=== PATIENT | female | born 1990 | race Hispanic/Latino ===

== ENCOUNTER 2020-08-30 14:30 | Outpatient (RCR) | payer OTHER, SELFPAY | END 2020-09-04 23:59 | LOC: DC 14:30 | PROVIDERS: Visit Provider Obstetrics & Gynecology | DX: O24.410 Gestational diabetes mellitus in pregnancy, diet controlled (principal) | CPT/HCPCS: 97802 ==

== ENCOUNTER 2020-09-18 14:30 | Outpatient (RCR) | payer OTHER, SELFPAY | END 2020-09-18 23:59 | disposition home or self-care (01) | LOC: DC 14:30 | PROVIDERS: Visit Provider Obstetrics & Gynecology | DX: O24.410 Gestational diabetes mellitus in pregnancy, diet controlled (principal); Z3A.00 Weeks of gestation of pregnancy not specified ==

== ENCOUNTER 2020-10-26 05:00 | Inpatient (IN) | payer OTHER, SELFPAY ==
--- NOTE | 2020-10-23 15:37 | HP.PCM_ITS ---
History and Physical Date of Admission: 10/26/20 HPI: The patient is a 30 year old female presenting for pre-operative visit. She is scheduled for , for breech on 10/26. Procedure discussed along with risks, benefits and complications. Other alternatives discussed for management. Consent form signed? Yes. ? ? PAST MEDICAL HISTORY PAST MEDICAL HISTORY Diagnosis Date ? Depression and anxiety ? ? Gestational diabetes mellitus, class A1 08/21/2020 ? IBS (irritable bowel syndrome) ? ? ? PAST SURGICAL HISTORY PAST SURGICAL HISTORY Procedure Laterality Date ? CHOLECYSTECTOMY HX ? CURRENT MEDICATIONS Current Outpatient Medications Medication Sig Dispense Refill ? insulin NPH human (HUMULIN N NPH INSULIN KWIKPEN) 100 unit/mL (3 mL) injection pen Inject 40 Units subcutaneously daily at bedtime. 1 Pen 1 ? triamcinolone acetonide (KENALOG) 0.1 % cream Apply to affected area twice daily. 45 g 0 ? Insulin [place], Disposable, (BD ULTRA-FINE KAREN PEN NEEDLE) 32 gauge x 5/32 30 Each once daily. 30 Each 1 ? blood sugar diagnostic test strip 1 Strip four times daily. Use as instructed 120 Strip 9 ? Lancets lancets 1 Each four times daily. Use as instructed 120 Each 9 ? MELATONIN ORAL Take by mouth. ? ? ? omeprazole magnesium (PRILOSEC ORAL) Take by mouth. ? ? ? diphenhydrAMINE HCl (UNISOM, DIPHENHYDRAMINE,) 50 mg/30 mL liqd Take by mouth. ? Esorrwmj-Hj-Eiz-Fe-FA ( VITAMIN) tab Take 1 tablet by mouth. ? ? ? cholecalciferol, vitamin D3, (VITAMIN D3 ORAL) Take by mouth. ? ? ? No current facility-administered medications for this visit. ? ? ALLERGIES: Morphine ? PERSONAL HISTORY: SOCIAL HISTORY Social History ? Tobacco Use ? Smoking status: Never Smoker ? Smokeless tobacco: Never Used Vaping Use ? Vaping Use: Never used Substance Use Topics ? Alcohol use: No ? Drug use: No ? FAMILY HISTORY: FAMILY HISTORY FAMILY HISTORY Problem Relation Age of Onset ? Depression Mother ? ? other (Diverticulitis) Mother ? ? other (stomach ulcers) Mother ? ? other (stomach ulcers) Sister ? ? No Known Problems Brother ? ? Heart Maternal Grandfather ? ? No Known Problems Sister ? ? No Known Problems Brother ? ? ? REVIEW OF SYMPTOMS: GENERAL: denies fevers or chills ENDOCRINOLOGY: has not been on steroids Cardiology : denies palpitations or chest pain Respiratory: denies SOB or cough Hematology: denies history of prolonged bleeding or easy bruising or VTE Allergy: Denies history of personal or family history of allergy to anesthesia ? PHYSICAL EXAMINATION: ? VITALS: Last menstrual period 01/27/2020. ? GENERAL: The patient is well nourished, well hydrated in no acute distress. , The patient is oriented to time, place, and person. NECK: Supple. No lynphadenopathy, normal thyroid, no thyromegaly. LUNGS: Clear to auscultation bilaterally. no wheezes, rhonchi or rales HEART: Regular rate and rhythm, Normal heart sounds and No murmurs or gallops ? IMPRESSION: Estimated Date of Delivery: 11/02/20 for primary c/s for breech, GDM A2 ? PLAN: The risks/benefits/alternatives and personal involved for the planned delivery were reviewed with the patient. Her questions were answered to her satisfaction and she desires to proceed. Consent was signed. I reviewed with her postop instructions and expectations. ? ? I have reviewed and updated past medical and surgical history, medications and allergies.This H&P was completed in my office on 10/23/2020 Assessment & Plan Assessment/Plan (1) White classification A2 gestational diabetes mellitus: (2) 39 weeks gestation of : (3) Breech presentation with problem: (4) Maternal obesity syndrome in third trimester: (5) Adult BMI 40.0-44.9 kg/sq m: (6) Supervision of other high risk pregnancies, third trimester:
[2020-10-26] VITALS (16 sets, daily range): BP systolic 99–132; BP diastolic 52–79; PULSE 57–88; RESP 16; TEMP 36.1–36.4; O2SAT 94–97; BMI 43.7
[2020-10-26] MEDS: Lactated Ringers 1,000 ML 999 ML IV (05:15)
[2020-10-26 05:32] LABS: Absolute Neutrophil Count 5.2 X10^3/uL (2.0-7.7); Basophil# 0.03 X10^3/uL; Basophil% 0.4 % (0-1); Eosinophil# 0.09 X10^3/uL; Eosinophils% 1.1 % (0-5); Hematocrit 37.9 % (37-47); Hemoglobin 12.7 g/dL (12.0-15.0); Lymphocyte % 25.7 % (19-41); Mean Corp Hgb Conc 33.5 g/dL (32-36); Mean Corpuscular Hgb 31.7 pg (27.0-32.0); Mean Corpuscular Volume 94.5 fL (81-99); Mean Platelet Vol. 10.4 fl (6.2-12.0); Monocyte# 0.64 X10^3/uL; Monocyte% 7.8 % (0-10); NRBC Flagged by Analyzer 0 % (0-5); Neutrophil # 5.23 X10^3/uL (2.7-7.7); Platelet Count 138 K/mm3 (150-450); RBC Distribution Width CV 14.3 % (11.6-14.6); RBC Distribution Width SD 49.5 fl (35.1-43.9); Red Blood Count 4.01 M/mm3 (4.2-5.4); White Blood Count 8.2 K/mm3 (4.4-11.0)
[2020-10-26] MEDS: Acetaminophen 500 MG Tablet 1000 MG PO ×4 (05:43→23:51)
[2020-10-26 05:56] LABS: Bedside Glucose 80 mg/dL (70-110)
[2020-10-26] MEDS: Lactated Ringers 1,000 ML 150 ML IV (06:16)
[2020-10-26] MEDS: Sodium Citrate/Citric Acid 30 ML UDC PO (07:05)
[2020-10-26] MEDS: Cefazolin 2 GM in 0.9% Normal Saline 100 ML IV (07:34)
[2020-10-26] MEDS: Oxytocin 30 units/NS 500 ml 30 UNITS/500 ML IV.SOLN 167 UNITS IV (08:30)
[2020-10-26] MEDS: Ketorolac 30 MG/ML Syringe IV ×3 (08:50→20:44)
[2020-10-26] MEDS: HYDROmorphone 1 MG/ML Syringe IV ×2 (09:13→11:52)
[2020-10-26 09:56] LABS: Bedside Glucose 95 mg/dL (70-110)
[2020-10-26] MEDS: Senna/Docusate Sodium 1 Tablet PO (10:45)
[2020-10-26] MEDS: Ondansetron 4 MG/2 ML Vial IV (11:00)
--- NOTE | 2020-10-26 11:10 | OP.PCM_ITS ---
Assessment & Plan (1) Breech presentation with problem: (2) Maternal obesity syndrome in third trimester: (3) Adult BMI 40.0-44.9 kg/sq m: (4) Supervision of other high risk pregnancies, third trimester: (5) delivery affecting : (6) Liveborn infant as result of : Maternal Data Information Final TUYET: 11/02/20 Final TUYET Source: US <20 weeks Gestational age: 39 0/7 Details Operative Information Date of Procedure: 10/26/20 Pre-Operative Diagnosis: breech Post-Operative Diagnosis: same Classification: Scheduled Procedure Type: low transverse commercial collections driver #1: Ashley Bruno Type of Anesthesia: Spinal Anesthesiologist: Sachin Corley Drain: Montes to straight drain Estimated Blood Loss: 800 Fluids Replaced: 1000 Procedure Start Time: 07:42 Procedure Stop Time: 08:05 Time of Delivery: 07:45 Findings Description of Procedure: The patient was taken to the operating room. She was prepped and draped in the dorsal supine position with a leftward tilt. A Pfannenstiel skin incision was made approximately 2 cm above the symphysis pubis and carried through to underlying layer fascia with the scalpel. The fascia was incised incised in the midline and extended laterally with blunt and sharp dissection. The rectus muscles were in the midline and the peritoneum was entered bluntly. The peritoneal incision was stretched and the b ladder blade was placed. The uterine incision was made in a low transverse fashion with the scalpel and extended superiorly and inferiorly with blunt dissection. The amniotic membranes were ruptured bluntly and clear amniotic fluid returned. The 's buttocks were brought to the incision. The baby was turned back up. The legs were swept out individually. Then the arms were swept out individually. The head was then delivered with fundal pressure in a flexed position without difficulty. The mouth and nares were bulb suctioned. The cord was clamped and cut as the infant was stimulated. Cord clamping was delayed. The infant was handed off to the waiting nursing staff. The placenta was delivered with fundal massage and gentle traction in the standard fashion. The uterus was exteriorized and cleared of all clots and debris. The cervix was dilated with a ring forcep. The uterine incision was closed with #1 Vicryl in a running locked fashion. A second layer of the same suture was used in an imbricating fashion. The incision was examined and was found to be hemostatic. The uterus was placed back into the peritoneal cavity and hemostasis was again confirmed. The rectus muscles were examined and any bleeding was Bovie cauterized. The parietal peritoneum and rectus muscles were closed en bloc with an 0 Vicryl running suture. The surgical teams outer gloves were then changed. The rectus fascia was examined and any bleeding was Bovie cauterized and the rectus fascia was closed with 0 PDS looped suture in a running standard fashion. The subcutaneous tissue was examining and any bleeding was Bovie cauterized. The subcutaneous tissue was reapproximated with 3-0 Vicryl suture. The skin was closed in a subcuticular fashion by the ECOLOGICAL TECHNICAL OFFICER with me present in the labor and delivery suite. I performed the remainder of the procedure with assistance. All sponge, lap, and needle counts were correct. The patient was taken to her room for recovery in a stable condition. Presentation: Positive for Rohan Breech Amniotic Membrane Rupture Type: Artificial Amniotic Fluid Description: Clear Placental Delivery Description: Spontaneous Placenta Disposition: [facility] Specimen(s) Sent to Pathology: none Cord Vessel Description: 3 Vessels Cord Entanglement: None A Gender: Male (1 minute): 9 (5 minute): 9 Delayed Cord Clamping: Yes Complications Complications: none
[2020-10-26] MEDS: Lactated Ringers 1,000 ML 100 ML IV (11:41)
[2020-10-26] MEDS: proCHLORPERazine 10 MG/2 ML Vial IV (12:21)
[2020-10-26] MEDS: 0.9% Saline Lock 10 ML Syringe IV ×2 (19:00→20:44)
[2020-10-26] MEDS: Enoxaparin 40 MG/0.4 ML Syringe SC (20:44)
[2020-10-27 00:40] VITALS: BP 120/73; PULSE 71; RESP 18; TEMP 36.4
[2020-10-27] MEDS: Ketorolac 30 MG/ML Syringe IV (03:14)
[2020-10-27] MEDS: 0.9% Saline Lock 10 ML Syringe IV (03:14)
[2020-10-27 03:22] VITALS: BP 108/59; PULSE 62; RESP 16; TEMP 36.6
[2020-10-27] MEDS: Acetaminophen 500 MG Tablet 1000 MG PO ×4 (06:01→23:53)
[2020-10-27 06:51] LABS: Hematocrit 33.5 % (37-47); Mean Corp Hgb Conc 32.8 g/dL (32-36); Mean Corpuscular Hgb 31.1 pg (27.0-32.0); Mean Corpuscular Volume 94.6 fL (81-99); Mean Platelet Vol. 10.7 fl (6.2-12.0); Platelet Count 128 K/mm3 (150-450); RBC Distribution Width CV 14.4 % (11.6-14.6); RBC Distribution Width SD 49.2 fl (35.1-43.9); Red Blood Count 3.54 M/mm3 (4.2-5.4); White Blood Count 9.8 K/mm3 (4.4-11.0)
[2020-10-27 07:35] LABS: Bedside Glucose 73 mg/dL (70-110)
[2020-10-27 08:15] VITALS: BP 114/62; PULSE 67; RESP 16; TEMP 36.4; O2SAT 96
--- NOTE | 2020-10-27 08:54 | PN.OBGYN_ITS ---
Subjective Subjective .Doing well per patient and nursing staff. Ambulating and taking PO without difficulty. Voiding and passing flatus. Pain controlled. , services for assistance. Denies headache, visual changes, chest pain, shortness of breath, leg pain or increased bleeding. Lochia normal. Planning DC home tomorrow. Objective Data Objective Data Vital Signs: Vital Signs Temp Pulse Resp BP Pulse Ox 97.5 F L 67 16 114/62 96 10/27/20 08:15 10/27/20 08:15 10/27/20 08:15 10/27/20 08:15 10/27/20 08:15 Oxygen Delivery Method Room Air Weight: 247 lb Body Mass Index (BMI) 43.7 Intake & Output: Intake and Output for Last 24 Hours 10/25/20 10/26/20 10/27/20 23:59 23:59 23:59 Intake Total 4026 / 4026 Output Total 3000 / 3000 500 / 500 Balance 1026 / 1026 -500 / -500 Lab / Micro Data Result Diagrams: 10/27/20 06:45 Labs: Laboratory Results - last 24 hr 10/26/20 09:47: POC Glucose 95 10/27/20 06:04: POC Glucose 73 10/27/20 06:45: WBC 9.8, RBC 3.54 L, Hgb 11.0 L, Hct 33.5 L, MCV 94.6, MCH 31.1, MCHC 32.8, RDW Std Deviation 49.2 H, RDW Coeff of [place] 14.4, Plt Count 128 L, MPV 10.7 ROS Constitutional Constitutional: Reports systems reviewed and no addt'l complaints, except as documented; Denies headache(s) Eyes Eyes: Denies acute decrease in peripheral vision, blurry vision or change in vision ENT HEENT: Reports systems reviewed and no addt'l complaints, except as documented Cardiovascular Cardiovascular: Denies chest pain or dizziness Respiratory/Chest Respiratory/Chest: Denies cough, dyspnea, dyspnea on exertion, shortness of mark ath at rest or shortness of breath with exertion Gastrointestinal Gastrointestinal: Denies abdominal pain, diarrhea, nausea or vomiting Genitourinary Genitourinary: Denies abdominal discomfort Musculoskeletal Musculoskeletal: Denies limited range of motion Integumentary Integumentary: Reports systems reviewed and no addt'l complaints, except as documented Neurologic Neurologic: Reports systems reviewed and no addt'l complaints, except as documented Psychiatric Psychiatric: Reports systems reviewed and no addt'l complaints, except as documented Endocrine Endocrinology: Reports systems reviewed and no addt'l complaints, except as documented Hematologic/Lymphatic Hematologic/Lymphatic: Reports systems reviewed and no addt'l complaints, except as documented Allergic/Immunologic Allergic/Immunologic: Reports systems reviewed and no addt'l complaints, except as documented Physical Exam Const alert and oriented x3 General Appearance: cooperative Orientation / Consciousness: awake, oriented to person, oriented to place and oriented to time Exam Limitations: no limitations HEENT normocephalic Head and Scalp: normal to inspection, normocephalic and atraumatic Face and Sinus: normal facial exam Eyes General Eye: normal appearance of both eyes Neck full ROM Chest Chest: symmetrical chest wall rise Resp normal respiratory effort and normal air movement Auscultation: clear to auscultation bilaterally Cardio regular rate, regular rhythm, S1 normal heart sound, S2 normal heart sound, no murmurs, no rub, no gallops and no clicks GI normal to inspection, nondistended, normoactive bowel sounds and non-tender GI Narrative: Fundus firm 3 below U. Dressing dry and intact. appearance of the vagina normal Bladder / Kidney Exam: no CVA tenderness Back/Spine normal ROM Extremity normal to inspection and full ROM Skin no rashes or lesions noted Neuro oriented x3, CN's II-XII intact bilaterally and moves all extremities Sensorium / Orientation: awake, alert and oriented to person Motor Exam: clonus absent Deep Tendon Reflexes: Rt Patellar (L4): 2+ and Lt Patellar (L4): 2+ Assessment & Plan (1) Liveborn as result of : (2) delivery affecting : (3) 39 weeks gestation of : (4) Adult BMI 40.0-44.9 kg/sq m: (5) White classification A2 gestational diabetes mellitus: PLAN: 1. Routine and breast-feeding instructions given. 2. Vital signs and labs stable. 3. Pain controlled. Montes out 4. Planning DC home tomorrow.
[2020-10-27] MEDS: Enoxaparin 40 MG/0.4 ML Syringe SC ×2 (10:15→21:42)
[2020-10-27] MEDS: Senna/Docusate Sodium 1 Tablet PO (10:16)
--- NOTE | 2020-10-27 10:51 | CM.ED ---
SW Note Assessment Referral Source: MD Reason for Referral: History of anxiety, depression and panic attacks SW interviewed patient and her in the room together. Patient voiced that she was comfortable speaking in front of the /fob. Mother delivered on 10/26/20 via c section. Mom: Vee Velasquez G2 P Now 1 PNC: [facility] Control: Abstinence and condoms. SW educated patient on abstinence as a method of control is sometime uneffective due to life situations. Patient said that they are only planning to have one child Baby: Titi ANDRADE 10/26/20 Apgars 9/9 Weight 8 lbs 2 ounces per parents [employer] Nurse: Dr. Alaniz's office ([facility]) Breast feeding: Mother reports that breast feeding is going good No other children Housing: Patient and FOB reside in an apartment in [place] with the and their dogs. Patient said that they are buying a house soon. Transportation: Patient and the FOB both have vehicles and are legally able to drive Supplies: Patient said that she has clothes till 2T, stroller, bassinet, diapers (various sizes) and bassinet with mattress that was included in the bassinet. Patient said that she plans to get a crib when they move to their new home Supports: Patient said that her support is her , Dean. Patient was asked if she had any other supports and patient said not really.. I keep to myself. Education Level: Patient graduated from high school. No learning issues or delays. No college or vocational school for patient. Employment: Patient is not employed outside of the home Agency Involvement: No JFS, WIC, HMG, Counseling, CSB or legal involvement, FOB: Dean Velasquez Time Together 8 1/2 years Father is involved with the Employment: [employer] in [place]. FOB will get 2 weeks off and also has a bank of [place] time (400 + hours) to assist with appointments, if needed. FOB MH/AOD and DV issues or history: FOB reports that he has anxiety. FOB said that he sees a psychiatrist from [facility] for [facility] and takes psychiatric medication. FOB is currently on medication, Ativan and Paxil and feels that the medication works well. He indicated that he had to try different Meds prior to finding the combination that worked but this current combination works well. JOVANI MH History: JOVANI reports a history of anxiety, depression and panic disorder. JOVANI is currently not on medication. JOVANI said that she has been calm and has been learning to manage her symptoms by taking a nap or showering. JOVANI reports no psych hospitalization history. JOVANI reports no history of SI/HI and JOVANI reports on this date she is not experiencing any SI/HI. JOVANI said that she took Wellbutrin in the past and discontinued it because I didn't like how it made me feel. JOVANI has been off anti anxiety and Wellbutrin since [id number] and off trazodone since 2018. Patient denied any AOD use or history. SW educated patient and FOB on Shaken Baby Syndrome, PPD and safe sleeping. SW observed patient holding and smiling when talking about the . FOB also seem to be appropriately bonding with the . SW spoke to RN Kelly who voiced no concerns regarding the care that the parents were providing. SW provided patient with handout on PPD including 10 facts about depression and anxiety in and , Babies cry alot handout, I need my own space handout, Help Me Grow information and resource list for [facility]. SW also provided information on Post Support Warm Line and Depression During and After . SW updated RN and the Nursing Board indicating patient was seen and clear for discharge unless new concerns arise. Plan: Home Kailee HAY
[2020-10-27 14:09] VITALS: BP 110/67; RESP 16; TEMP 36.7
[2020-10-27 20:09] VITALS: BP 121/79; PULSE 74; RESP 18; TEMP 36.6
[2020-10-28 01:45] VITALS: BP 118/72; PULSE 63; RESP 16; TEMP 36.6
[2020-10-28] MEDS: Acetaminophen 500 MG Tablet 1000 MG PO (06:53)
[2020-10-28 08:00] VITALS: BP 112/67; PULSE 62; RESP 20; TEMP 36.6
--- NOTE | 2020-10-28 09:45 | PCM.PN.OB ---
Subjective Subjective Doing well per patient and nursing staff. Ambulating and taking PO without difficulty. Voiding and passing flatus. Pain controlled. , services for assistance. Denies headache, visual changes, chest pain, shortness of breath, leg pain or increased bleeding. Lochia normal. Planning DC home today Objective Data Objective Data Vital Signs: Vital Signs Temp Pulse Resp BP Pulse Ox 97.8 F 62 20 H 112/67 96 10/28/20 08:00 10/28/20 08:00 10/28/20 08:00 10/28/20 08:00 10/27/20 08:15 Oxygen Delivery Method Room Air Weight: 247 lb Body Mass Index (BMI) 43.7 Intake & Output: Intake and Output for Last 24 Hours 10/26/20 10/27/20 10/28/20 23:59 23:59 23:59 Intake Total 4026 / 4026 Output Total 3000 / 3000 500 / 500 Balance 1026 / 1026 -500 / -500 Lab / Micro Data Result Diagrams: 10/27/20 06:45 ROS Constitutional Constitutional: Reports systems reviewed and no addt'l complaints, except as documented; Denies headache(s) Eyes Eyes: Denies acute decrease in peripheral vision, blurry vision or change in vision ENT HEENT: Reports systems reviewed and no addt'l complaints, except as documented Cardiovascular Cardiovascular: Denies chest pain or dizziness Respiratory/Chest Respiratory/Chest: Denies cough, dyspnea, dyspnea on exertion, shortness of breath at rest or shortness of breath with exertion Gastrointestinal Gastrointestinal: Denies abdominal pain, diarrhea, nausea or vomiting Genitourinary Genitourinary: Denies abdominal discomfort Musculoskeletal Musculoskeletal: Denies limited range of motion Integumentary Integumentary: Reports systems reviewed and no addt'l complaints, except as documented Neurologic Neurologic: Reports systems reviewed and no addt'l complaints, except as documented Psychiatric Psychiatric: Reports systems reviewed and no addt'l complaints, except as documented Endocrine Endocrinology: Reports systems reviewed and no addt'l complaints, except as documented Hematologic/Lymphatic Hematologic/Lymphatic: Reports systems reviewed and no addt'l complaints, except as documented Allergic/Immunologic Allergic/Immunologic: Reports systems reviewed and no addt'l complaints, except as documented Physical Exam Const alert and oriented x3 General Appearance: cooperative Orientation / Consciousness: awake, oriented to person, oriented to place and oriented to time Exam Limitations: no limitations HEENT normocephalic Head and Scalp: normal to inspection, normocephalic and atraumatic Face and Sinus: normal facial exam Eyes General Eye: normal appearance of both eyes Neck full ROM Chest Chest: symmetrical chest wall rise Resp normal respiratory effort and normal air movement Auscultation: clear to auscultation bilaterally Cardio regular rate, regular rhythm, S1 normal heart sound, S2 normal heart sound, no murmurs, no rub, no gallops and no clicks GI normal to inspection, nondistended, normoactive bowel sounds and non-tender GI Narrative: Fundus firm 3 below U. Dressing dry and intact. appearance of the vagina normal Bladder / Kidney Exam: no CVA tenderness Back/Spine normal ROM Extremity normal to inspection and full ROM Skin no rashes or lesions noted Neuro oriented x3, CN's II-XII intact bilaterally and moves all extremities Sensorium / Orientation: awake, alert and oriented to person Motor Exam: clonus absent Deep Tendon Reflexes: Rt Patellar (L4): 2+ and Lt Patellar (L4): 2+ Assessment & Plan (1) Liveborn infant as result of : (2) delivery affecting : (3) White classification A2 gestational diabetes mellitus: PLAN: 1. Routine and breast-feeding instructions reviewed. Postoperative instructions. 2. Blood pressure stable. 3. Pain controlled, declines prescription for narcotic. Would like Tylenol and Ibuprofen. To call if needed. 4. Follow-up for 1 week incision check in 6 weeks for visit. 5. DC home today
[2020-10-28] MEDS: Enoxaparin 40 MG/0.4 ML Syringe SC (11:08)
--- NOTE | 2020-10-28 11:15 | PCM.DC.SUM ---
Providers Date of Admission: 10/26/20 Reason For Visit: C SECTION Diagnosis Discharge Diagnosis (1) Liveborn infant as result of : Status: Acute Code(s): Z37.0 - Single live (2) delivery affecting : Status: Acute Code(s): P03.4 - affected by delivery (3) White classification A2 gestational diabetes mellitus: Status: Acute Code(s): O24.419 - Gestational diabetes mellitus in , unspecified control Medications at Discharge Home Medications 1 tab PO DAILY 10/26/20 vit D3-folic zaaj-S1-J2-B12 1 tab PO DAILY 10/26/20 acetaminophen 1,000 mg PO Q6 #30 tab 10/28/20 ibuprofen 600 mg PO Q6H PRN #30 tab 10/28/20 sennosides-docusate sodium [Stool Softener-Stimulant Laxat] 1 tab-cap PO DAILY #30 tab 10/28/20 Weight / BMI Weight Weight: 247 lb Body Mass Index (BMI) 43.7 ABG / Lab / Microbiology Data Result Diagrams: 10/27/20 06:45 D/C Instructions Discharge Diet: No restrictions Discharge Activity: Return to Normal Activity, May Shower and May Take a Tub Bath May resume sexual activity in: 6 weeks Weight Bearing Status: Weight bearing as tolerated Lifting Restricted to (Lbs): 50 Call your doctor if your incision/area has: Sudden Increased Bleeding, Increased Pain/ Swelling, Increased Redness and Foul Smelling Discharge Call your doctor if you observe: Fever of 101 or Higher, Inability to urinate, Inability to have a bowel movement, Using more than 1 pad per hour, Shortness of breath, Dizziness, Fainting spells, Chest pain, Increased palpitations (irregular heartbeat), Calf discomfort and Uncontrolled pain Please Follow Up With: When: 2 weeks for virtual visit and 6 weeks for visit Meaningful Use Info Meaningful Use Diagnoses (Choose all that apply): None applicable Discharge Plan Admission Admit Date/Time: 10/26/20 05:00 Primary Reason for Your Visit: vaginal delivery Attending Provider: Aleida Tenorio Instructions Patient Instructions: Discharge Orders/Prescriptions Prescriptions: New sennosides-docusate sodium [Stool Softener-Stimulant Laxat] 8.6-50 mg Tablet 1 tab-cap PO DAILY Qty: 30 RF: 0 acetaminophen 500 mg Tablet 1,000 mg PO Q6 Qty: 30 RF: 0 ibuprofen 600 mg tablet 600 mg PO Q6H PRN (Reason: pain) Qty: 30 RF: 12 Continued vit D3-folic ufoy-P2-L2-B12 2,000-800-0.32 unit-mcg-mg Tablet 1 tab PO DAILY RF: 0 400 mcg Tablet,Chewable 1 tab PO DAILY RF: 0 Discontinued omeprazole [Prilosec] 10 mg Capsule,Delayed Release(Dr/Ec) 10 mg PO PRN PRN (Reason: ) RF: 0 insulin NPH isoph U-100 human 100 unit/mL Cartridge 20 unit SUBCUT X1 RF: 0 melatonin 1 mg Tablet 1 mg PO PRN PRN (Reason: Sleep) RF: 0 Unisom (diphenhydramine) 50 mg/30 mL Liquid RF: 0 Referrals / Follow Up: Aleida Tenorio MD [STAFF PHYSICIAN] - (Follow up in 1 week for incision check and 6 weeks for PP visit) Disposition Disposition (needs filled in before D/C Order can be placed): Home, Self Care
[2020-10-28] MEDS: Senna/Docusate Sodium 1 Tablet PO (11:31)
== END 2020-10-28 12:15 | disposition home or self-care (01) | DRG 788 ==
PROVIDERS: Admitting Provider Obstetrics & Gynecology; Referring Provider Obstetrics & Gynecology; Visit Provider Obstetrics & Gynecology
PROC: 10D00Z1 Extraction of Products of Conception, Low, Open Approach (ICD-10-PCS; CPT 59514; principal; 2020-10-26 07:15)
DX: O32.1XX0 Maternal care for breech presentation, not applicable or unspecified (principal); O99.214 Obesity complicating childbirth; E66.9 Obesity, unspecified; O24.425 Gestational diabetes mellitus in childbirth, controlled by oral hypoglycemic drugs; Z3A.39 39 weeks gestation of pregnancy; Z37.0 Single live birth
CPT/HCPCS: 82962; 85025; 85027; 86850; 86900; 86901; 99218; 99251; J7120; A4216; G0378; G0463; J2405